=== PATIENT | male | born 1975 | race African-American/Black ===

== ENCOUNTER 2016-07-11 13:56 | Emergency (ER) | payer MEDICAID | END 2016-07-11 18:09 | disposition home or self-care (01) | LOC: D.ER 13:56 | DX: M79.672 Pain in left foot (principal) ==

== ENCOUNTER 2017-01-04 12:31 | Emergency (ER) | payer MEDICAID ==
[2017-01-04 13:05] LABS: BASOPHILS 0.3 % (0-2); EOSINOPHILS 0.3 % (0-7); HEMATOCRIT 43.5 % (42.0-54.0); HEMOGLOBIN 16.2 g/dL (13.5-17.5); IMMATURE GRANULOCYTES 0.2 % (0-5); LYMPHOCYTES 33.2 % (15-50); MCH 33.3 pg (26.0-34.0); MCHC 37.2 g/dL (31.0-37.0); MCV 89.3 fL (80.0-100.0); MEAN PLATELET VOLUME 9.5 fL (7.4-10.4); MONOCYTES 8.4 % (2-11); NEUTROPHILS 57.6 % (40-80); PLATELET COUNT 255 10x3/uL (130-400); RBC 4.87 10x6/uL (4.20-6.10); RDW 11.7 % (11.5-14.5); WBC 6.2 10x3/uL (4.8-10.8)
[2017-01-04 13:28] LABS: ALBUMIN 4.3 g/dL (3.4-5.0); ALKALINE PHOSPHATASE 46 U/L (46-116); ALT (SGPT) 41 U/L (10-68); BILIRUBIN - TOTAL 0.67 mg/dL (0.2-1.3); CALC OSMOLALITY 272 mosm/kg (275-300); CALCIUM 9.2 mg/dL (8.5-10.1); CARBON DIOXIDE 24.2 mmol/L (21.0-32.0); CHLORIDE - SERUM 100 mmol/L (98-107); CREATININE - SERUM 1.4 mg/dL (0.6-1.3); GLUCOSE 103 mg/dL (74-106); POTASSIUM - SERUM 3.4 mmol/L (3.5-5.1); PROTEIN - SERUM 8.1 g/dL (6.4-8.2); SODIUM 137 mmol/L (136-145); UREA NITROGEN 11 mg/dL (7-18); eGFR NON AFRICAN AMERICAN 59 mL/min (90-120)
[2017-01-04 13:35] LABS: UDS - AMPHET POSITIVE QUAL (NEGATIVE); UDS - BARB NEGATIVE QUAL (NEGATIVE); UDS - BENZO NEGATIVE QUAL (NEGATIVE); UDS - COCAINE NEGATIVE QUAL (NEGATIVE); UDS - OPIATE NEGATIVE QUAL (NEGATIVE); UDS - PCP NEGATIVE QUAL (NEGATIVE); UDS - THC POSITIVE QUAL (NEGATIVE)
[2017-01-04 13:40] LABS: CHOL - HDL RATIO 2.4 ratio (2.3-4.9); CHOLESTEROL, TOTAL 222 mg/dL (0-200); CREATINE KINASE 705 UL (21-232); HDL CHOLESTEROL 91 mg/dL (32-96); LDL CHOLESTEROL 121 mg/dL (0-100); LDL-HDL RATIO 1.3 ratio (1.5-3.5); TRIGLYCERIDE 53 mg/dL (30-200); TROPONIN-I < 0.017 ng/mL (0.000-0.060)
[2017-01-04 13:46] LABS: MAGNESIUM - SERUM 2.1 mg/dL (1.8-2.4)
== END 2017-01-04 16:30 | disposition home or self-care (01) ==
LOC: D.ER 12:31
PROVIDERS: Emergency Medicine
DX: R07.9 Chest pain, unspecified (principal); F15.90 Other stimulant use, unspecified, uncomplicated; F12.90 Cannabis use, unspecified, uncomplicated; R00.0 Tachycardia, unspecified